=== PATIENT | male | born 1945 | race Caucasian/White ===

== ENCOUNTER 2018-10-19 09:28 | Observation (INO) | payer MEDICARE ==
[~2018-10-19] VITALS: Ht 172.7 cm; Wt 122.5 kg
--- OUTSIDE RECORDS SUMMARY | 2018-10-19 09:31 | XMS REPORT | Clinical Summary ---
Author Author [facility] Address Unknown Phone Unavailable Care Team Providers Care Keg Raiser Name Role Phone Sharpless PCP Allergies No Known Allergies Medications End Date Status Medication Sig Dispensed Refills Start Date Active aspirin 81 MG EC tablet Take 81 mg by 0 mouth nightly. Active Ca carb-D3-mag Take by mouth 0 ra-mxl-lolf-Zn (CALTRATE 2 (two) times + D3 PLUS MINERALS) 300 daily. mg-800 unit -25 mg-0.5 mg Tab Active fluticasone (FLONASE) 50 1 spray by 0 mcg/actuation nasal spray Nasal route daily. Active glipiZIDE-metFORMIN Take 2 0 (METAGLIP) 5-500 mg per tablets by tablet mouth 2 (two) times daily before meals. Active lisinopril-hydrochlorothi Take 2 0 azide tablets by (PRINZIDE,ZESTORETIC) mouth daily. 20-12.5 mg per tablet Active methylcellulose, Take by mouth 0 laxative, (CITRUCEL) 500 2 (two) times mg Tab daily. Active pantoprazole (PROTONIX) Take 40 mg by 0 40 MG tablet mouth daily. Active simvastatin (ZOCOR) 40 MG Take 40 mg by 0 tablet mouth nightly. 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 Last Filed Vital Signs Not on file Plan of Treatment Not on file Implants Device Identifier Shelf Expiration Date Model / Serial / Lot Implanted Type Area Manufactur er 05/03/2016 [id number] / / [id number] Mesh Ventralight [id number] - Mesh N/A: Abdomen CR [id number] BARD:DAVOL Implanted: Qty: 1 on 02/19/2016 by Chidi Deluca MD Results Not on fileafter 10/18/2017 Insurance Payer Benefit Subscriber ID Type Phone Address Plan / Group [facility] MEDIC[facility] ADV Advance Directives For more information, please contact: [facility] [address] [place] [address] Date Inactivated Comments Code Status Date Activated 02/19/2016 2:43 PM Full Code 02/19/2016 7:20 AM This code status was determined by: Patient
[2018-10-19] MEDS ORDERED: MORPHINE SULFATE 2 MG/ML SYR 1ML IV STA (10:17)
[2018-10-19] MEDS ORDERED: ONDANSETRON HCL INJ 2MG/ML 2ML 2 MG/ML VIAL IV STA (10:17)
[2018-10-19] MEDS ORDERED: IOPAMIDOL 370 MG/ML 200 ML INFUS..BTL INJ ONE (10:40)
[2018-10-19] MEDS ORDERED: SODIUM CHLORIDE 0.9% 50ML 50 ML ONE (10:40)
--- NOTE | 2018-10-19 11:37 | Diagnostic Imaging Report ---
EXAMINATION: CT of the abdomen and pelvis with contrast. TECHNIQUE: Helical CT images of the abdomen and pelvis were performed from the lung bases to the lesser trochanters after the intravenous administration of 100 cc of Isovue 300 and the oral administration of none. Coronal and sagittal reformatted images were obtained.Dose modulation, iterative reconstruction, and/or weight based adjustment of the mA/kV was utilized to reduce the radiation dose to as low as reasonably achievable. COMPARISON: None. CLINICAL HISTORY:Abdominal pain DISCUSSION: ABDOMEN/PELVIS: LOWER THORAX:Unremarkable. HEPATOBILIARY: No focal hepatic lesions. No intra-or extrahepatic biliary ductal dilation. Calcified gallstone in the neck measuring approximately 5 mm. SPLEEN: No splenomegaly. PANCREAS: No focal masses or ductal dilatation. ADRENALS: No adrenal nodules. KIDNEYS/URETERS: Multiple bilateral renal cysts the largest in the left kidney measuring 3.1 cm in the right measuring 2.4 cm. No obstruction. No calculi. PELVIC ORGANS/BLADDER: Prostate is enlarged measuring 6.2 cm in transverse dimension. High density within the dependent bladder. PERITONEUM/RETROPERITONEUM: No free air or fluid. LYMPH NODES: No intra-abdominal, retroperitoneal, pelvic or inguinal lymphadenopathy. VESSELS: The celiac trunk,superior and inferior mesenteric and bilateral renal arteries are patent The portal, superior mesenteric and splenic veins are patent. GI TRACT: Scattered diverticulosis without inflammatory change. The appendix is normal. Rugal thickening within the stomach. BONES AND SOFT TISSUE: No bony destructive lesions. No soft tissue abnormalities. IMPRESSION: Gastric wall thickening/gastritis. No acute CT finding. Chronic changes as above. Signed by: Dr. Jordi Catalan M.D. on 10/19/2018 11:33 AM
[2018-10-19] MEDS ORDERED: MORPHINE SULFATE INJ 4 MG/ML INJ 1ML ONE (11:38)
[2018-10-19] MEDS ORDERED: ONDANSETRON HCL INJ 2MG/ML 2ML 2 MG/ML VIAL ONE (11:38)
[2018-10-19] MEDS ORDERED: SODIUM CHLORIDE 0.9% 1000ML 1,000 ML ONE (11:39)
[2018-10-19] MEDS: SODIUM CHLORIDE 0.9% 1000ML 1,000 ML IV SCH ×2 (11:40→21:29)
--- NOTE | 2018-10-19 12:30 | Diagnostic Imaging Report ---
EXAMINATION: CT of the chest with contrast, PE protocol. TECHNIQUE: Spiral CT images of the chest were performed from the lung apices through the level of the adrenal glands after the IV administration of 100 cc cc of Isovue-370. Thin section reconstructions were obtained with special concentration on the pulmonary arteries. Technique modification was utilized to maintain the lowest dose possible to the patient. DLP was not recorded. COMPARISON: <none> CLINICAL HISTORY:Chest pain with elevated d-dimer DISCUSSION: Lungs: No filling defects are identified in the main, right or left pulmonary arteries to their segmental and subsegmental levels, to suggest pulmonary embolism. Airways: <The major airways are clear.> Pleura: <There is no evidence of pleural effusion or pneumothorax.> Heart and mediastinum: <The heart and the mediastinum are normal.> Prominent lymph node in the right hilum measures 12.8 mm. Thoracic aortic and coronary artery calcification. Right pulmonary artery measures 2.8 cm and the left measures 2.3 cm. Abdomen: <The visualized parts of the upper abdomen are unremarkable.> Bones and soft tissues: There are degenerative changes of the spine. The soft tissues are unremarkable.> IMPRESSION: 1. No CTA evidence of pulmonary emboli. 2. Significant diffuse coronary artery calcification. 3. Prominent right hilar lymph node is nonspecific. Signed by: Dr. Aleksandar Aleman DO on 10/19/2018 12:26 PM
[2018-10-19] MEDS ORDERED: PANTOPRAZOLE 40 MG 10ML VIAL IV STA (12:38)
[2018-10-19] MEDS ORDERED: ONDANSETRON HCL INJ 2MG/ML 2ML 2 MG/ML VIAL IV PRN (12:45)
[2018-10-19] MEDS ORDERED: ASPIRIN 81 MG CHEW TAB PO ONE (12:45)
[2018-10-19] MEDS ORDERED: NITROGLYCERIN 0.4 MG SUBL SL PRN (12:45)
[2018-10-19] MEDS ORDERED: MORPHINE SULFATE 2 MG/ML SYR 1ML IV PRN (12:45)
--- OUTSIDE RECORDS SUMMARY | 2018-10-19 13:06 | XMS REPORT ---
Author Author [facility] Address Unknown Phone Unavailable Care Team Providers Care Pesticide Use Medical Coordinator Name Role Phone DESTINI VALENTE Unavailable Unavailable Problems This patient has no known problems. Allergies, Adverse Reactions, Alerts This patient has no known allergies or adverse reactions. Medications This patient has no known medications. Results Test Description Test Time Test Comments Text Results Atomic Results Result Comments CT CHEST WITH CONTRAST-HOPD 2018-10-19 12:15:00 [place] [address] Patient Name: SEAN GRANADOS MR #: [id number] : 1945 Age/Sex: 73/M Req #: [id number] Adm Physician: Ordered by: DESTINI VALENTE MD Report #: [id number] Location: [facility] Room/Bed: Procedure: [id number] HOPD/CT CHEST WITH CONTRAST-HOPD Exam Date: 10/19/18 Exam Time: 1152 REPORT STATUS: Signed EXAMINATION: CT of the chest with contrast, PE protocol. TECHNIQUE: Spiral CT images of the chest were performed from the lung apices through the level of the adrenal glands after the IV administration of 100 cc cc of Isovue-370. Thin section reconstructions were obtained with special concentration on the pulmonary arteries. Technique modification was utilized to maintain the lowest dose possible to the patient. DLP was not recorded. COMPARISON: <none> CLINICAL HISTORY:Chest pain with elevated d-dimer DISCUSSION: Lungs: No filling defects are identified in the main, right or left pulmonary arteries to their segmental and subsegmental levels, to suggest pulmonary embolism. Airways: <The major airways are clear.> Pleura: <There is no evidence of pleural effusion or pneumothorax.> Heart and mediastinum: <The heart and the mediastinum are normal.> Prominent lymph node in the right hilum measures 12.8 mm. Thoracic aortic and coronary artery calcification. Right pulmonary artery measures 2.8 cm and the left measures 2.3 cm. Abdomen: <The visualized parts of the upper abdomen are unremarkable.> Bones and soft tissues: There are degenerative changes of the spine. The soft tissues are unremarkable.> IMPRESSION: 1. No CTA evidence of pulmonary emboli. 2. Significant diffuse coronary artery calcification. 3. Prominent right hilar lymph node is nonspecific. Signed by: Dr. Trisha Aleman DO on 10/19/2018 12:26 PM Dictated By: TRISHA ALEMAN DO 1226 Transcribed By: JOJO on 10/19/18 1226 COPY TO: DESTINI VALENTE MD CT ABD/PEL WITH CONTRAST-HOPD 2018-10-19 11:26:00 [place] [address] Patient Name: SEAN GRANADOS MR #: [id number] : 1945 Age/Sex: 73/M Req #: [id number] Adm Physician: Ordered by: DESTINI VALENTE MD Report #: [id number] Location: ED Room/Bed: Procedure: [id number] HOPD/CT ABD/PEL WITH CONTRAST-HOPD Exam Date: 10/19/18 Exam Time: 1119 REPORT STATUS: Signed EXAMINATION: CT of the abdomen and pelvis with contrast. TECHNIQUE: Helical CT images of the abdomen and pelvis were performed from the lung bases to the lesser trochanters after the intravenous administration of 100 cc of Isovue 300 and the oral administration of none. Coronal and sagittal reformatted images were obtained.Dose modulation, iterative reconstruction, and/or weight based adjustment of the mA/kV was utilized to reduce the radiation dose to as low as reasonably achievable. COMPARISON: None. CLINICAL HISTORY:Abdominal pain DISCUSSION: ABDOMEN/PELVIS: LOWER THORAX:Unremarkable. HEPATOBILIARY: No focal hepatic lesions. No intra-or extrahepatic biliary ductal dilation. Calcified gallstone in the neck measuring approximately 5 mm. SPLEEN: No splenomegaly. PANCREAS: No focal masses or ductal dilatation. ADRENALS: No adrenal nodules. KIDNEYS/URETERS: Multiple bilateral renal cysts the largest in the left kidney measuring 3.1 cm in the right measuring 2.4 cm. No obstruction. No calculi. PELVIC ORGANS/BLADDER: Prostate is enlarged measuring 6.2 cm in transverse dimension. High density within the dependent bladder. PERITONEUM/RETROPERITONEUM: No free air or fluid. LYMPH NODES: No intra-abdominal, retroperitoneal, pelvic or inguinal lymphadenopathy. VESSELS: The celiac trunk,superior and inferior mesenteric and bilateral renal arteries are patent The portal, superior mesenteric and splenic veins are patent. GI TRACT: Scattered diverticulosis without inflammatory change. The appendix is normal. Rugal thickening within the stomach. BONES AND SOFT TISSUE: No bony destructive lesions. No soft tissue abnormalities. IMPRESSION: Gastric wall thickening/gastritis. No acute CT finding. Chronic changes as above. Signed by: Dr. Savannah Sarkar M.D. on 10/19/2018 11:33 AM Dictated By: SAVANNAH SARKAR MD 1133 Transcribed By: JOJO on 10/19/18 1133 COPY TO: DESTINI VALENTE MD
--- OUTSIDE RECORDS SUMMARY | 2018-10-19 13:06 | XMS REPORT | Clinical Summary ---
Author Author [facility] Address Unknown Phone Unavailable Care Team Providers Care Clinical Academic Allergist Name Role Phone Sharpless PCP Allergies No Known Allergies Medications End Date Status Medication Sig Dispensed Refills Start Date Active aspirin 81 MG EC tablet Take 81 mg by 0 mouth nightly. Active Ca carb-D3-mag Take by mouth 0 oo-qvc-sobu-Zn (CALTRATE 2 (two) times + D3 PLUS [...] Lot Implanted Type Area Manufactur er 05/03/2016 [id number] / / [id number] Mesh Ventralight [id number] - Mesh N/A: Abdomen CR [id number] BARD:DAVOL Implanted: Qty: 1 on 02/19/2016 by Chidi Deluca MD Results Not on fileafter 10/18/2017 Insurance Payer Benefit Subscriber ID Type Phone Address Plan / Group [facility] MEDIC[facility] ADV Advance Directives For more information, please contact: [facility] [address] [place] [address] Date Inactivated Comments Code Status Date Activated 02/19/2016 2:43 PM Full Code 02/19/2016 7:20 AM This code status was determined by: Patient
[2018-10-19] MEDS ORDERED: ASPIRIN 81 MG CHEW TAB ONE (13:07)
[2018-10-19] MEDS ORDERED: PANTOPRAZOLE 40 MG 10ML VIAL ONE (13:08)
[2018-10-19] MEDS ORDERED: FAMOTIDINE 20 MG/2 ML VIAL IV ONE (13:08)
[2018-10-19] MEDS: FAMOTIDINE 20 MG TAB PO SCH (13:09)
--- NOTE | 2018-10-19 14:32 | NUR ---
recv pt from [facility]. pt alert, unable to verify all home meds at this time. pt very [employer] [place] and has distended abd.
[2018-10-19] MEDS ORDERED: PANTOPRAZOLE SO40 MG PO (15:44)
[2018-10-19] MEDS ORDERED: METFORMIN HCL500 MG PO (15:44)
[2018-10-19] MEDS ORDERED: GLIPIZIDE5 MG PO (15:44)
[2018-10-19] MEDS ORDERED: HYDROCHLOROTHIA25 MG (15:44)
[2018-10-19] MEDS ORDERED: CALTRATE PLUS1 EACH (15:44)
[2018-10-19] MEDS ORDERED: SIMVASTATIN40 MG PO (15:44)
[2018-10-19] MEDS ORDERED: LISINOPRIL10 MG PO (15:44)
[2018-10-19] MEDS ORDERED: JANUVIA100 MG PO (15:44)
[2018-10-19] MEDS ORDERED: CITRACAL-VIT D1 EACH (15:45)
[2018-10-19] MEDS ORDERED: CALCIUM CARBONATE 500 MG CHEWABLE TABS PO PRN (16:15)
[2018-10-19] MEDS ORDERED: DEXTROSE 50% SYRINGE 50 ML IV PRN (16:15)
[2018-10-19] MEDS ORDERED: ACETAMINOPHEN 325 MG TAB PO PRN (16:15)
[2018-10-19 16:30] LABS: CREATINE KINASE MB 2.3 ng/mL (0-5.0)
[2018-10-19] MEDS ORDERED: MORPHINE SULFATE INJ 4 MG/ML INJ 1ML IV PRN (16:30)
[2018-10-19] MEDS: INSULIN LISPRO 100 UNIT/1 ML 3ML VIAL SQ SCH ×2 (16:30→21:00)
[2018-10-19 16:48] VITALS: BP 117/58
[2018-10-19] MEDS: GLIPIZIDE 5 MG TAB PO SCH (16:50)
[2018-10-19] MEDS: LISINOPRIL 20 MG TAB PO SCH (16:50)
[2018-10-19] MEDS: HYDROCHLOROTHIAZIDE 25 MG TAB PO SCH (16:50)
[2018-10-19] MEDS ORDERED: LISINOPRIL 10 MG TAB PO SCH (17:00)
[2018-10-19 17:03] VITALS: BP 117/58
--- NOTE | 2018-10-19 17:03 | NUR ---
pt doesnt take insulin at home and is uncomfortable taking at this time. pt refused
--- NOTE | 2018-10-19 19:08 | NUR ---
Bedside report and walking rounds done. Pt resting in bed and in no apparent distress. Pt family at bedside. Pt on room air and tele. All safety measures ensured and pt call [facility] near.
[2018-10-19 20:00] VITALS: BP_SYST 118; BP_SYST 135; BP_DIAS 65; BP_DIAS 70
[2018-10-19] MEDS ORDERED: PANTOPRAZOLE SOD 40 MG TABEC PO SCH (21:00)
[2018-10-19] MEDS ORDERED: SIMVASTATIN 40 MG TAB PO SCH (21:00)
[2018-10-20] VITALS: BP 112/61
[2018-10-20] MEDS: FAMOTIDINE 20 MG TAB PO SCH (00:34)
[2018-10-20 04:00] VITALS: BP 99/52
[2018-10-20] MEDS: SODIUM CHLORIDE 0.9% 1000ML 1,000 ML IV SCH (06:08)
[2018-10-20 06:31] LABS: CREATINE KINASE MB 2.5 ng/mL (0-5.0)
--- NOTE | 2018-10-20 07:00 | NUR ---
patient resting in bed, no s/s distress at this time. will continue to monitor.
--- NOTE | 2018-10-20 07:12 | NUR ---
Beside report walking round complete with day shift RN.
[2018-10-20 07:24] LABS: CHOL/HDL RATIO 3.5 (3.9-4.7)
[2018-10-20] MEDS: INSULIN LISPRO 100 UNIT/1 ML 3ML VIAL SQ SCH ×2 (07:30→11:30)
[2018-10-20] MEDS: GLIPIZIDE 5 MG TAB PO SCH (08:15)
[2018-10-20] MEDS: HYDROCHLOROTHIAZIDE 25 MG TAB PO SCH (08:53)
[2018-10-20] MEDS: LISINOPRIL 20 MG TAB PO SCH (08:53)
[2018-10-20 08:55] VITALS: BP 115/57
[2018-10-20] MEDS ORDERED: ASPIRIN 81 MG ENTERIC COATED PO SCH (09:00)
[2018-10-20] MEDS ORDERED: SITAGLIPTIN 100 MG TAB PO SCH (09:00)
[2018-10-20] MEDS ORDERED: OYST-CAL-D 500MG TABLET PO SCH (09:00)
[2018-10-20 09:19] VITALS: BP 115/57
[2018-10-20] MEDS ORDERED: ONDANSETRON HCL 4 MG ORAL DISINTEGRATING TAB PO PRN (10:30)
[2018-10-20 11:49] VITALS: BP 115/69
--- NOTE | 2018-10-20 12:11 | Discharge Summary ---
PRIMARY CARE DOCTOR: Dr. Moo Barajas. FINAL DIAGNOSIS: Abdominal pain of unclear etiology, resolving. SECONDARY DIAGNOSES: 1. Morbid obesity. 2. Hypertension. 3. Diabetes. CONSULTANTS: None. PROCEDURES/STUDIES PERFORMED: CT of the chest and abdomen with IV contrast. HISTORY: Per H and P. HOSPITAL COURSE: The patient's pain began to resolve on its own. Currently, he ate all his breakfast without problem. Although his stomach is still a little sore, he is feeling much better. Etiology is unclear, possibly due to resolving partial small bowel obstruction since he has had multiple hernia surgeries in the past. CT did show some possible gastritis; however, since the patient has been taking Protonix, he is doing pretty well on that aspect. At this time, I had a long discussion with both the patient and daughter at the bedside. The patient would like to go home with outpatient followup. He will follow up with his primary care doctor in a week. If still not completely better, potentially he will follow up with his surgeon for possible postop pain. We can also consider CT with oral contrast to get a better visualization of the small bowel. Lastly, we can always consider repeating his EGD. CONDITION ON DISCHARGE: Improved. DISCHARGE MEDICATIONS: Please see medication reconciliation form. MD ADDI Whitt/WILMER /[id number] cc: [facility]
[2018-10-21] MEDS ORDERED: METFORMIN HCL 500 MG TAB PO SCH (08:00)
== END 2018-10-20 12:25 | disposition home or self-care (01) ==
LOC: FSED 09:28 → ERHOLD 12:50 → IMCU 14:36
PROVIDERS: ADMIT Internal Medicine; ATTEND Internal Medicine
DX: R10.13 Epigastric pain (principal); R10.12 Left upper quadrant pain; Z83.3 Family history of diabetes mellitus; E11.9 Type 2 diabetes mellitus without complications; I10 Essential (primary) hypertension; E78.5 Hyperlipidemia, unspecified; E66.01 Morbid (severe) obesity due to excess calories; Z68.41 Body mass index [BMI] 40.0-44.9, adult
CPT/HCPCS: 36415 ×2; 71260; 74177; 80048; 80061; 80076; 81003; 82550 ×2; 82553 ×2; 82948 ×2; 84484 ×2; 85025; 85379; 93005; 99284; C9113; G0378 ×2; J2270 ×2; J2405; J7030 ×2; Q9967; S0164

== ENCOUNTER 2024-07-13 10:15 | Emergency (ER) | payer MEDICARE ==
[~2024-07-13] VITALS: Ht 167.6 cm; Wt 122.5 kg
[~2024-07-13 10:15] MED LIST: CALTRATE PLUS1 EACH; CITRACAL-VIT D1 EACH; GLIPIZIDE5 MG PO; HYDROCHLOROTHIA25 MG; JANUVIA100 MG PO; LISINOPRIL10 MG PO; METFORMIN HCL500 MG PO; PANTOPRAZOLE SO40 MG PO; SIMVASTATIN40 MG PO
[2024-07-13 11:01] VITALS: TEMP 99
[2024-07-13] MEDS ORDERED: SODIUM CHLORIDE 0.9% 1000ML 1,000 ML ONE (11:20)
[2024-07-13] MEDS: ONDANSETRON HCL INJ 2MG/ML 2ML 2 MG/ML VIAL IV STA (11:32)
[2024-07-13 11:35] LABS: BASOPHILS # (AUTO) 0.1 (0.0-0.1); BASOPHILS % 0.2 % (0.0-1.0); EOSINOPHILS % 0.1 % (0.0-6.0); HEMATOCRIT 31.9 % (38.2-49.6); HEMOGLOBIN 10.5 g/dL (14.0-18.0); LYMPHOCYTES # (AUTO) 1.6 (1.0-3.2); LYMPHOCYTES % 5.5 % (18.0-39.1); MEAN CORPUSCULAR HEMOGLOBIN 27.7 pg (28-32); MEAN CORPUSCULAR HGB CONC 32.9 g/dL (31-35); MEAN CORPUSCULAR VOLUME 84.2 fL (81-99); MONOCYTES # (AUTO) 1.7 (0.2-0.8); MONOCYTES % 5.6 % (4.4-11.3); NEUTROPHILS # (AUTO) 25.3 (2.1-6.9); NEUTROPHILS % 85.2 % (38.7-80.0); PLATELET COUNT 558 x10e3/uL (140-360); RED BLOOD COUNT 3.79 x10e6/uL (4.3-5.7); RED CELL DISTRIBUTION WIDTH 16.9 % (11.7-14.4); WHITE BLOOD COUNT 29.62 x10e3/uL (4.8-10.8)
[2024-07-13] MEDS: SODIUM CHLORIDE 0.9% 1000ML 1,000 ML IV STA (11:39)
[2024-07-13] MEDS: SODIUM CHLORIDE 0.9% 1000ML 1,000 ML IV ONE (11:46)
[2024-07-13] MEDS ORDERED: PROCHLORPERAZINE EDISYLATE 5 MG/ML VIAL IV ONE (12:00)
[2024-07-13 12:10] LABS: ALBUMIN 2.2 g/dL (3.5-5.0); ALBUMIN/GLOBULIN RATIO 0.5 (0.8-2.0); ANION GAP 20.3 mmol/L (8-16); BILIRUBIN,TOTAL 0.9 mg/dL (0.2-1.2); CALCIUM 8.9 mg/dL (8.4-10.2); CREATININE, SERUM 2.4 mg/dL (0.72-1.25); POTASSIUM 3.3 mmol/L (3.5-5.1)
[2024-07-13] MEDS: CEFEPIME 2 GM in SODIUM CHLORIDE 0.9% 100 ML IV ONE (12:29)
[2024-07-13] MEDS ORDERED: PROCHLORPERAZINE MALEATE TAB 10 MG TAB PO ONE (13:33)
[2024-07-13] MEDS: PROCHLORPERAZINE EDISYLATE 5 MG/ML VIAL IV ONE (13:40)
[2024-07-13 14:10] LABS: ANISOCYTOSIS SLIGHT; LYMPHOCYTES % (MANUAL) 9 % (19-48); MONOCYTES % (MANUAL) 6 % (3.4-9.0); NEUTROPHILS % (MANUAL) 85 % (40-74); POLYCHROMASIA FEW
[2024-07-13 14:11] LABS: PLATELET ESTIMATE SLIGHTLY INCREASED; PLATELET MORPHOLOGY COMMENT NORMAL; RBC MORPHOLOGY COMMENT NORMAL
[2024-07-13 17:23] VITALS: PULSE 104; RESP 21
[2024-07-13] MEDS: ACETAMINOPHEN 1000 MG/100 ML IV STA (18:35)
[2024-07-13 19:01] LABS: BILIRUBIN,URINE NEGATIVE (NEGATIVE); CLARITY,URINE CLEAR (CLEAR); COLOR,URINE YELLOW (YELLOW); GLUCOSE, URINE NEGATIVE (NEGATIVE); KETONES,URINE NEGATIVE (NEGATIVE); LEUKOCYTE ESTERASE ,URINE TRACE (NEGATIVE); NITRITE,URINE NEGATIVE (NEGATIVE); PH,URINE 5.5 (5 - 7); PROTEIN,URINE DIPSTICK 2+ (NEGATIVE); URINE UROBILINOGEN 0.2 mg/dL (0.2 - 1)
[2024-07-13 19:03] LABS: AMORPHOUS SEDIMENT,URINE FEW; BACTERIA,URINE MODERATE /HPF; EPITHELIAL CELLS,URINE FEW /LPF; RBC,URINE 0-5 /HPF (0-5)
[2024-07-13 20:28] VITALS: BP 107/65; PULSE 101; RESP 18; TEMP 98.3; O2SAT 98
== END 2024-07-13 18:30 | disposition other institution (70) ==
LOC: ER 10:33
DX: T81.49XA Infection following a procedure, other surgical site, initial encounter (principal); A41.9 Sepsis, unspecified organism; I12.9 Hypertensive chronic kidney disease with stage 1 through stage 4 chronic kidney disease, or unspecified chronic kidney disease; E11.22 Type 2 diabetes mellitus with diabetic chronic kidney disease; N18.9 Chronic kidney disease, unspecified; I50.9 Heart failure, unspecified; I25.10 Atherosclerotic heart disease of native coronary artery without angina pectoris; E78.5 Hyperlipidemia, unspecified; G47.30 Sleep apnea, unspecified; K21.9 Gastro-esophageal reflux disease without esophagitis; R94.31 Abnormal electrocardiogram [ECG] [EKG]; Z87.19 Personal history of other diseases of the digestive system
CPT/HCPCS: 36415; 71045; 74150; 80053; 81001; 83605; 85025; 87040; 87086; 93005; 99285; J0131; J0692; J0780; J2405; J7030; J7050